=== PATIENT | female | born 1955 | race Caucasian/White ===

== ENCOUNTER 2017-05-06 21:01 | Emergency (ER) | payer OTHER ==
[~2017-05-06] VITALS: Ht 157.5 cm; Wt 61.4 kg
[~2017-05-06 21:01] MED LIST: AMLO10TA2 PO; ASCO500T8 PO; CYAN25009 PO; ESTR1.25 PO; Vitamin B6 PO
[2017-05-06 21:04] VITALS: BP 152/88
== END 2017-05-06 21:43 | disposition home or self-care (01) ==
LOC: ED 21:37
DX: T78.40XA Allergy, unspecified, initial encounter (principal); L23.9 Allergic contact dermatitis, unspecified cause; X58.XXXA Exposure to other specified factors, initial encounter
CPT/HCPCS: 99283

== ENCOUNTER → 2017-06-20 | Outpatient (CLI) | payer OTHER | END | disposition home or self-care (01) | LOC: EDSTATUS 09:00 → CFH 09:13 | PROVIDERS: ATTEND Family Medicine | DX: N64.89 Other specified disorders of breast (principal); Z12.31 Encounter for screening mammogram for malignant neoplasm of breast | CPT/HCPCS: G0202 ==

== ENCOUNTER 2020-12-12 20:12 | Emergency (ER) | payer OTHER ==
[~2020-12-12] VITALS: Ht 157.5 cm; Wt 66.5 kg
[~2020-12-12 20:12] MED LIST changes: +AMLO-211 PO; -AMLO10TA2 PO
--- NOTE | 2020-12-12 20:34 | NUR ---
PT STATES YESTERDAY AFTERNOON A DEEP AND SHARP PAIN IN HER LLQ AND LUQ OF HER ABDOMEN. VERY TENDER UPON TOUCH. NORMOACTIVE MOWEL SOUNDS. MILD NAUSEA. DENIES DIARRHEA AND VOMITING. DENIES SOB AND CP.
[2020-12-12] MEDS ORDERED: ONDANSETRON 2MG/ML, 2ML IVPush ONE (21:30)
[2020-12-12] MEDS ORDERED: ONDANSETRON 2MG/ML, 2ML ONE (21:35)
[2020-12-12 21:36] LABS: BASOPHILS % (AUTO) 1 % (0-1); EOSINOPHILS % (AUTO) 2 % (1-7); LYMPHOCYTES % (AUTO) 28 % (22-44); MD NO; MEAN CORPUSCULAR HEMOGLOBIN 31.5 pg (27.0-34.8); MEAN CORPUSCULAR HGB CONC 34.5 g/dL (32.4-35.8); MEAN PLATELET VOLUME 8.2 fL (7.4-10.4); MONOCYTES % (AUTO) 9 % (2-9); NEUTROPHILS % (AUTO) 61 % (42-75); PLATELET COUNT 282 x10^3/uL (130-400); RED BLOOD COUNT 4.16 x10^6/uL (3.82-5.3); RED CELL DISTRIBUTION WIDTH 13.5 % (9.6-15.2)
[2020-12-12 21:38] LABS: ALANINE AMINOTRANSFERASE 19 U/L (12-78); ALBUMIN 3.1 g/dL (3.4-5.0); ANION GAP 5 mmol/L (5-15); CALCIUM 8.6 mg/dL (8.5-10.1); CHLORIDE 109 mmol/L (98-107)
[2020-12-12 21:40] LABS: ALKALINE PHOSPHATASE 53 U/L (45-117); BILIRUBIN,TOTAL 0.2 mg/dL (0.2-1.0); TOTAL PROTEIN 6.4 g/dL (6.4-8.2)
--- NOTE | 2020-12-12 21:40 | NUR ---
PT UP IN BATHROOM GETTING ATTEMPTING A UA
--- NOTE | 2020-12-12 21:46 | NUR ---
PT BACK IN BED LYING DOWN. ATTACHED TO MONITORS. CALL LIGGHT WITHIN REACH.
--- NOTE | 2020-12-12 21:50 | NUR ---
PT OFF UNIT IN IMAGING
[2020-12-12 22:12] LABS: MICROSCOPIC NOT IND
--- NOTE | 2020-12-12 22:12 | NUR ---
PT BACK FROM CT. VSS. STATES TRACI HAS HELPED.
[2020-12-12] MEDS ORDERED: POTASSIUM CHLORIDE 20 MEQ TAB.ER.PRT ONE (22:58)
[2020-12-12] MEDS ORDERED: metroNIDAZOLE 500 MG TABLET ONE (22:58)
[2020-12-12] MEDS ORDERED: CIPROFLOXACIN 500 MG TABLET ONE (22:58)
[2020-12-12] MEDS ORDERED: CIPROFLOXACIN 500 MG TABLET PO ONE (23:00)
[2020-12-12] MEDS ORDERED: metroNIDAZOLE 500 MG TABLET PO ONE (23:00)
[2020-12-12] MEDS ORDERED: POTASSIUM CHLORIDE 20 MEQ TAB.ER.PRT PO ONE (23:00)
--- NOTE | 2020-12-12 23:04 | NUR ---
REPORT TO MARC LONG.
[2020-12-12 23:58] VITALS: BP 127/67
[2020-12-13] MEDS ORDERED: OMNIPAQUE 350 MG/ML, 100ML BOTTLE ONE (01:41)
== END 2020-12-13 | disposition home or self-care (01) ==
LOC: ED 23:20
DX: K57.32 Diverticulitis of large intestine without perforation or abscess without bleeding (principal); E87.6 Hypokalemia; K80.20 Calculus of gallbladder without cholecystitis without obstruction
CPT/HCPCS: 36415; 74177; 80053; 81003; 83605; 83690; 85025; 96374; 99284; J2405; Q9967